=== PATIENT | female | born 1940 | race Caucasian/White ===

== ENCOUNTER 2017-02-21 08:02 | Day surgery (SDC) | payer MEDICARE ==
[~2017-02-21] VITALS: Ht 167.6 cm; Wt 72.6 kg
[~2017-02-21 08:02] MED LIST: CIPRO 500MG TA500 MG PO
--- NOTE | 2017-02-21 13:09 | Anesthesia Record ---
Anesthesia Record Part I Total IV fluids: 600 EBL (ml): 0 Urine Output: 0 (NOT MEASURED) Units of blood given: 0 B/P: 158/80 % SaO2: 97 Pulse: 80 Resps: 16 Temp: 97.8 Patient is: Awake, Stable Stable to PACU at: 1113 (SDS) at 1308
--- NOTE | 2017-02-21 13:09 | Operative Note ---
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 The perilesional area which was on the superior aspect of the left ear was infiltrated with 3 mL of 2 percent lidocaine containing epinephrine. The lesion was marked out, the markup measured 2.5 cm. The markup was incised and the lesion was excised along the level of the perichondrium of the left ear. As well small amount of perichondrium and cartilage was resected in the anterior portion of the incision. Bleeding was stopped with bipolar cautery. A tissue rearrangement geometric plastic repair was done with interrupted 5-0 Vicryl sutures and 5-0 nylon sutures. An excellent repair was obtained. A Dermabond dressing was applied. Blood loss was less than 10 mL. EBL (ml): 4 Specimens obtained: Same as above at 1678
--- NOTE | 2017-02-21 13:09 | Anesthesia Record ---
Anesthesia Record Part II Discharge time: 1143 Destination: HOME PACU nurse assessment review? No (WASN'T IN PACU) Patient is: Awake, Stable Anesthesia complications? No at 4201
[2017-02-21 13:34] VITALS: BP 154/55
== END 2017-02-21 11:58 | disposition home or self-care (01) ==
LOC: SDC 08:02
PROVIDERS: Otolaryngology
PROC: 0HB3XZX Excision of Left Ear Skin, External Approach, Diagnostic (ICD-10-PCS; principal; 2017-02-21 09:45)
DX: C44.219 Basal cell carcinoma of skin of left ear and external auricular canal (principal); E11.9 Type 2 diabetes mellitus without complications

== ENCOUNTER 2017-07-30 06:17 | Day surgery (SDC) | payer MEDICARE ==
[2017-07-30 08:41] VITALS: BP 187/86
== END 2017-07-30 08:34 | disposition home or self-care (01) ==
LOC: SDC 06:17
PROC: 08RJ3JZ Replacement of Right Lens with Synthetic Substitute, Percutaneous Approach (ICD-10-PCS; principal; 2017-07-30)
DX: H26.9 Unspecified cataract (principal); E11.9 Type 2 diabetes mellitus without complications

== ENCOUNTER → 2017-08-05 | Outpatient (CLI) | payer MEDICARE ==
[2017-08-05 07:51] LABS: HEMOGLOBIN 14.9 g/dL (12.2-16.2); LYMPH # 1.3 K/mm3 (0.7-4.5)
[2017-08-05 10:35] LABS: BUN 33 mg/dL (7-18)
[2017-08-05 10:37] LABS: GFR (ESTIMATED) 81 ML/MIN (59-)
== END ==
LOC: LAB 07:26
PROVIDERS: Nurse Practitioner Family
DX: I10 Essential (primary) hypertension (principal); E11.9 Type 2 diabetes mellitus without complications; E03.9 Hypothyroidism, unspecified